=== PATIENT | female | born 1960 | race Caucasian/White ===

== ENCOUNTER 2018-07-23 07:46 | Emergency (ER) | payer BC ==
[~2018-07-23] VITALS: Ht 160 cm; Wt 107.0 kg
[~2018-07-23 07:46] MED LIST: ALBU90OI61 INH; AMLO5 PO; ASPI325 PO; ATOR80 PO; Bisoprolol-Hct1 EAC2 PO; CLON1 PO; CLOP75 PO; CRUTCH3 USE; CYCL10 PO; ESCI10 PO; GABA100 PO; GLIP5 PO; HYDACE5325 PO; KETOROLAC60 MG/2 ML IM; LEVSOD100 PO; LORA1 PO; MECL12.5 PO; METF500C PO; NAPR500 PO; NAPR550 PO; OXYACE5T PO; Percocet 5-3251 EACH PO; RXCYCL10 PO; RXNAPNA550 PO; TRAM50 PO
[2018-07-23] MEDS ORDERED: Oxycodone-Apap1 EAC3 PO (08:15)
[2018-07-23] MEDS ORDERED: AMIT25 PO (08:16)
[2018-07-23] MEDS ORDERED: Percocet 5-3251 EACH PO (10:10)
== END 2018-07-23 10:28 | disposition home or self-care (01) ==
LOC: ER 07:46
DX: M75.32 Calcific tendinitis of left shoulder (principal); M75.52 Bursitis of left shoulder; Z88.0 Allergy status to penicillin; Z88.5 Allergy status to narcotic agent; Z79.899 Other long term (current) drug therapy; Z79.84 Long term (current) use of oral hypoglycemic drugs; Z79.02 Long term (current) use of antithrombotics/antiplatelets; Z79.82 Long term (current) use of aspirin; I10 Essential (primary) hypertension; E11.9 Type 2 diabetes mellitus without complications; I25.2 Old myocardial infarction; F17.210 Nicotine dependence, cigarettes, uncomplicated
CPT/HCPCS: 20610; 73030; 93005; 93010; 99283-25; J3301

== ENCOUNTER 2023-08-08 15:02 | Emergency (ER) | payer SELFPAY ==
[~2023-08-08] VITALS: Ht 160 cm; Wt 122.5 kg
[~2023-08-08 15:02] MED LIST changes: +AMIT25 PO; +Oxycodone-Apap1 EAC3 PO
[2023-08-08 15:32] VITALS: BP 171/91
[2023-08-08] MEDS ORDERED: Tetanus and Diphtheria Toxoid 0.5 ML INJ IM ONE (15:35)
== END 2023-08-08 16:22 | disposition home or self-care (01) ==
LOC: ER 15:02
DX: S50.811A Abrasion of right forearm, initial encounter (principal); S50.11XA Contusion of right forearm, initial encounter; S80.811A Abrasion, right lower leg, initial encounter; S80.11XA Contusion of right lower leg, initial encounter; G89.29 Other chronic pain; I10 Essential (primary) hypertension; E11.9 Type 2 diabetes mellitus without complications; F17.210 Nicotine dependence, cigarettes, uncomplicated; W18.09XA Striking against other object with subsequent fall, initial encounter; Z88.0 Allergy status to penicillin; Z88.5 Allergy status to narcotic agent; Z79.84 Long term (current) use of oral hypoglycemic drugs; Z79.890 Hormone replacement therapy; Z79.02 Long term (current) use of antithrombotics/antiplatelets; Z79.899 Other long term (current) drug therapy
CPT/HCPCS: 73090; 90471; 90714; 99283-25

== ENCOUNTER 2024-06-23 04:12 | Emergency (ER) | payer SELFPAY ==
[~2024-06-23] VITALS: Ht 160 cm; Wt 144.3 kg
[2024-06-23 10:54] LABS: BASOPHILS ABSOLUTE AUTO 0.01 K/mm3 (0.00-0.23); BASOPHILS PERCENT AUTO 0 % (0-2); EOSINOPHILS ABSOLUTE AUTO 0.08 K/mm3 (0.00-0.68); EOSINOPHILS PERCENT AUTO 1 % (0-6); Hematocrit 36.4 % (33.0-51.0); Hemoglobin 11.6 g/dL (11.5-16.0); IMMATURE GRAN ABSOLUTE AUTO 0.01 K/mm3 (0.00-0.10); IMMATURE GRAN PERCENT AUTO 0 % (0-1); LYMPHOCYTES ABSOLUTE AUTO 1.07 K/mm3 (0.84-5.20); LYMPHOCYTES PERCENT AUTO 17 % (21-46); MONOCYTES ABSOLUTE AUTO 0.34 K/mm3 (0.16-1.47); MONOCYTES PERCENT AUTO 5 % (4-13); Mean Corpuscular HGB 35.5 pg (26.0-34.0); Mean Corpuscular HGB Conc 31.9 g/dL (31.5-36.5); Mean Corpuscular Volume 111 fL (80-100); Mean Platelet Volume 8.5 fL (9.1-12.4); NEUTROPHILS ABSOLUTE AUTO 4.81 K/mm3 (1.96-9.15); NEUTROPHILS PERCENT AUTO 76 % (41-73); Platelet Count 258 K/mm3 (150-400); RDW Standard Deviation 95.9 fL (35.1-46.3); Red Blood Cell Count 3.27 M/mm3 (3.80-5.20); White Blood Cell Count 6.32 K/mm3 (4.00-11.30)
[2024-06-23 11:08] LABS: Albumin, Blood 2.9 g/dL (3.4-5.0); Albumin/Globulin Ratio 0.6 (0.8-1.8); Bilirubin, Total 0.9 mg/dL (0.1-1.0); Bun/Creatinine Ratio 28.7 (12.0-20.0); Calcium, Blood 8.7 mg/dL (8.5-10.1); Creatinine, Blood 0.49 mg/dL (0.40-1.00); Globulin, Blood 4.5 g/dL (2.2-4.0); Potassium, Blood 3.7 mmol/L (3.5-5.5); Total Protein, Blood 7.4 g/dL (6.4-8.2)
[2024-06-23] MEDS ORDERED: Morphine Sulfate 4 MG/1 ML Injection IV ONE (11:15)
[2024-06-23] MEDS ORDERED: Aspir 8181 MG PO (11:38)
[2024-06-23] MEDS ORDERED: LOSA25 PO (11:39)
[2024-06-23] MEDS ORDERED: PIOG30 PO (11:40)
[2024-06-23] MEDS ORDERED: FURO20 PO (12:25)
[2024-06-23 12:30] VITALS: BP 116/72
== END 2024-06-23 12:45 | disposition home or self-care (01) ==
LOC: ER 04:12
PROVIDERS: Student in an Organized Health Care Education/Training Program
DX: R60.1 Generalized edema (principal); K76.89 Other specified diseases of liver; I10 Essential (primary) hypertension; E11.9 Type 2 diabetes mellitus without complications; F17.210 Nicotine dependence, cigarettes, uncomplicated; Z79.899 Other long term (current) drug therapy; Z79.84 Long term (current) use of oral hypoglycemic drugs; Z79.02 Long term (current) use of antithrombotics/antiplatelets; Z88.0 Allergy status to penicillin; Z88.5 Allergy status to narcotic agent
CPT/HCPCS: 74177; 80053; 83690; 85025; 99284-25; J2270; Q9967

== ENCOUNTER 2024-06-28 13:27 | Inpatient (IN) | payer MEDICAID ==
[~2024-06-28] VITALS: Ht 160 cm; Wt 142.0 kg
[~2024-06-28 13:27] MED LIST changes: +Aspir 8181 MG PO; +FURO20 PO; +LOSA25 PO; +PIOG30 PO
[2024-06-28 14:59] LABS: BASOPHILS ABSOLUTE AUTO 0.01 K/mm3 (0.00-0.23); BASOPHILS PERCENT AUTO 0 % (0-2); EOSINOPHILS ABSOLUTE AUTO 0.04 K/mm3 (0.00-0.68); EOSINOPHILS PERCENT AUTO 1 % (0-6); Hematocrit 36.6 % (33.0-51.0); Hemoglobin 11.5 g/dL (11.5-16.0); IMMATURE GRAN ABSOLUTE AUTO 0.02 K/mm3 (0.00-0.10); IMMATURE GRAN PERCENT AUTO 0 % (0-1); LYMPHOCYTES PERCENT AUTO 17 % (21-46); MONOCYTES ABSOLUTE AUTO 0.29 K/mm3 (0.16-1.47); MONOCYTES PERCENT AUTO 5 % (4-13); Mean Corpuscular HGB 35.7 pg (26.0-34.0); Mean Corpuscular HGB Conc 31.4 g/dL (31.5-36.5); Mean Corpuscular Volume 114 fL (80-100); Mean Platelet Volume 8.8 fL (9.1-12.4); NEUTROPHILS PERCENT AUTO 77 % (41-73); NRBC ABSOLUTE 0.02 K/mm3 (0.00-0.02); NRBC Auto 0.3 /100 WBC (0.0-0.2); Platelet Count 250 K/mm3 (150-400); RDW Coefficient Variation 22.9 % (11.7-14.2); RDW Standard Deviation 96.2 fL (35.1-46.3); Red Blood Cell Count 3.22 M/mm3 (3.80-5.20); White Blood Cell Count 5.96 K/mm3 (4.00-11.30)
[2024-06-28 15:18] LABS: Albumin, Blood 2.9 g/dL (3.4-5.0); Albumin/Globulin Ratio 0.6 (0.8-1.8); Bilirubin, Total 0.8 mg/dL (0.1-1.0); Bun/Creatinine Ratio 22.6 (12.0-20.0); Calcium, Blood 9.2 mg/dL (8.5-10.1); Creatinine, Blood 0.57 mg/dL (0.40-1.00); Globulin, Blood 4.7 g/dL (2.2-4.0); Potassium, Blood 3.9 mmol/L (3.5-5.5); Total Protein, Blood 7.6 g/dL (6.4-8.2)
[2024-06-28] MEDS ORDERED: Furosemide 10 MG/ML 4ML Vial IV ONE (17:50)
[2024-06-28] MEDS ORDERED: FLU VACC TS2024-25(6MOS UP)/PF 45 MCG/0.5 ML SYRINGE IM ONE (18:45)
[2024-06-28] MEDS ORDERED: Albuterol 2.5 MG/3 ML VIAL INH PRN (18:50)
[2024-06-28 21:24] VITALS: BP 135/63
--- NOTE | 2024-06-28 22:16 | NUR ---
ADMIT NOTE 63 YR OLD FEMALE ADMITTED TO FLOOR FROM THE ED WITH DX OF NEW ONSET OF CHF. ALERT AND ORIENTED. NO C/O CHEST PAIN. VSS. PT OBESE (149 KG). PLACED ON MED TELE SR. ON O2 AT 2L/NC. UP WITH ASSIST TO VOID - RECEIVED LASIX IN THE ED. NOTE 2 SMALL ABRASIONS OF BLE - BACK OF THIGHS, VOICED "CUT" HERSELF ON "THE TOILET" IN THE ED EARLIER IN THE DAY. SEE PICS. OTHERWISE, SLIGHT REDNESS UNDER BREASTS AND NO NOTED OTHER ANOMALY. ORIENTED TO USE OF CALL LIGHT. AGREES TO USE CALL LIGHT IF NEED TO GET OOB. CALL LIGHT IN REACH
--- NOTE | 2024-06-29 01:25 | NUR ---
MD NOTIFIED OF SMALL CUTS/ABRASIONS OF BACK OF BILAT THIGHS. NO SPECIFIC ORDERS, HUST TO KEEP CLEAN AND DRESSING IF NEEDED
--- NOTE | 2024-06-29 03:26 | NUR ---
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 VSS. NO C/O CHEST PAIN. MED TELE IN USE. ALERT AND ORIENTED X 4. EDEMA IN BLE. OBESE. WT 149 KG. UP WITH ASSIST TO AND FROM BATHROOM, ABLE TO REPOSITION SELF IN BED WITHOUT ASSIST. ORIENTED TO USE OF CALL LIGHT. HAS BEEN RESTING INTERMITTENTLY, VOICED NEEDING TO VOID AT INTERVALS. TO HAVE ECHO LATER TODAY. CALL LIGHT IN REACH, RAILS UP X 2 AND BED IN LOW POSITION FOR SAFETY. WILL CONT TO MONITOR
[2024-06-29 04:17] VITALS: BP 121/50
[2024-06-29 07:05] LABS: Bun/Creatinine Ratio 20.3 (12.0-20.0); Calcium, Blood 8.6 mg/dL (8.5-10.1); Creatinine, Blood 0.54 mg/dL (0.40-1.00); Magnesium, Blood 1.5 mg/dL (1.6-2.4); Potassium, Blood 3.1 mmol/L (3.5-5.5)
[2024-06-29 07:12] VITALS: BP 111/60
[2024-06-29] MEDS ORDERED: Insulin Human Lispro 100 Units/ML 3ML Syringe SC SCH (07:30)
[2024-06-29] MEDS ORDERED: Acetaminophen 500 MG Tab PO PRN (08:00)
[2024-06-29] MEDS ORDERED: Potassium Chloride 20 MEQ TabCR PO ONE (08:00)
[2024-06-29] MEDS ORDERED: Polyethylene Glycol 3350 17 gm PO PRN (08:00)
[2024-06-29] MEDS ORDERED: Mag Sulfate 1 GM/D5% 100ML 100 ML IV STA (08:23)
--- NOTE | 2024-06-29 08:43 | NUR ---
CALL PLACED TO DR DC, HOME PERCOCET ORDERED FOR PT PAIN
[2024-06-29] MEDS ORDERED: OxyCODONE 5 mg/Acetamin 325 mg TABLET PO PRN (08:45)
[2024-06-29] MEDS ORDERED: Enoxaparin 40 MG/0.4 ML SYR SC SCH (09:00)
[2024-06-29] MEDS ORDERED: Furosemide 10 MG/ML 4ML Vial IV SCH (09:00)
[2024-06-29] MEDS ORDERED: Losartan Potassium 25 MG Tab PO SCH (09:00)
[2024-06-29] MEDS ORDERED: Aspirin 81 MG Chew PO SCH (09:00)
[2024-06-29] MEDS ORDERED: GlipiZIDE 5 MG Tab PO SCH (09:00)
[2024-06-29] MEDS ORDERED: NS 250 ML IV PRN (09:50)
[2024-06-29] MEDS ORDERED: Levothyroxine Sodium 0.1 MG Tab PO SCH (10:02)
[2024-06-29] MEDS ORDERED: Spironolactone 12.5 MG TAB PO SCH (14:00)
[2024-06-29] MEDS ORDERED: Spironolactone 25 MG Tab PO SCH (14:00)
[2024-06-29 15:02] VITALS: BP 116/57
--- NOTE | 2024-06-29 18:00 | NUR ---
SHIFT SUMMARY PT A&OX4 AND ANSWERS QUESTIONS APPROPRIATELY. SCHEDULED AND PRN MEDICATIONS ADMINISTERED. PT HAD ECHOCARDIOGRAM THIS AM, NO ADVERSE EFFECTS. PT VSS, NO COMPLAINTS OF CP/PRESSURE OR SOB. PT SPENT MOST OF SHIFT IN BED AND ALERT. AMBULATES SBA/INDEPENDENTLY TO THE BR. NO ACUTE EVENTS AT THIS TIME. PT REPOSITIONED INDEPENDENTLY. PT LEFT IN A POSITION OF SAFETY WITH FALL PRECAUTIONS IN PLACE AND CALL LIGHT IN REACH.
[2024-06-29 19:49] VITALS: BP 119/57
[2024-06-29] MEDS ORDERED: Amitriptyline HCl 25 MG Tab PO SCH (21:00)
[2024-06-29] MEDS ORDERED: Docusate Sodium/Senna 1 Tab PO SCH (21:00)
[2024-06-30 02:34] VITALS: BP 120/91
--- NOTE | 2024-06-30 03:20 | NUR ---
VULNERABILITY ASSESSMENT ANALYST SUMMARY: PT A&O X4. MAKES NEEDS KNONW. MEDICATED X1 WITH PRN PERCOCET PER EMAR ORDER; EFFECTIVE. PT AMBULATES AND PERFORMES BED MOBILITY INDEPENDENTLY IN ROOM. DENIES CP /PRESSSURE OR SOB. PT WITH GENERALIZED SACRAL EDEMA AND RLE 1+, LLE 2+ EDEMA. PT ENCOURAGED TO ELEVATE BLE'S. VSS. NO ACUTE EVENTS / CHANGES THIS SHIFT. BED IN LOWEST POSITION. CALL LIGHT IN REACH.
[2024-06-30 05:45] LABS: Hematocrit 34.2 % (33.0-51.0); Hemoglobin 10.9 g/dL (11.5-16.0); Mean Corpuscular HGB 35.4 pg (26.0-34.0); Mean Corpuscular HGB Conc 31.9 g/dL (31.5-36.5); Mean Corpuscular Volume 111 fL (80-100); Mean Platelet Volume 8.6 fL (9.1-12.4); Platelet Count 208 K/mm3 (150-400); RDW Coefficient Variation 22.5 % (11.7-14.2); RDW Standard Deviation 92.7 fL (35.1-46.3); Red Blood Cell Count 3.08 M/mm3 (3.80-5.20); White Blood Cell Count 4.85 K/mm3 (4.00-11.30)
[2024-06-30 06:07] LABS: Albumin, Blood 2.8 g/dL (3.4-5.0); Anion Gap 6 mmol/L (3-11); Blood Urea Nitrogen 12 mg/dL (8-24); Bun/Creatinine Ratio 21.9 (12.0-20.0); CO2, Blood 40 mmol/L (21-32); Calcium, Blood 9.1 mg/dL (8.5-10.1); Chloride, Blood 94 mmol/L (98-108); Creatinine, Blood 0.55 mg/dL (0.40-1.00); Glomerular Filtration Rate 103 (60-); Glucose, Blood 142 mg/dL (70-99); Magnesium, Blood 1.7 mg/dL (1.6-2.4); Potassium, Blood 3.2 mmol/L (3.5-5.5); Sodium, Blood 137 mmol/L (136-145); Thyroxine (T4) 9.6 ug/dL (4.8-13.9)
[2024-06-30] MEDS ORDERED: Potassium Chloride 20 MEQ TabCR PO ONE (07:10)
[2024-06-30 07:33] VITALS: BP 128/62
[2024-06-30 15:45] VITALS: BP 113/54
--- NOTE | 2024-06-30 16:41 | NUR ---
SHIFT SUMMARY: PATIENT A/OX4, CALM, PLEASANT AND COOPERATIVE c CARE. PATIENT DENIES CP/PRESSURE, SOB, N/V AND DIZZINESS. PATIENT ON TELE, SR HR IN THE HIGH 80'S BPM. PATIENT HAS EDEMA FROM ABDOMEN DOWN TO FEET, DIURESED c IV LASIX AND PO ALDACTONE, MEDICATED X1 FOR CHRONIC BACK PAIN PER EMAR c GOOD EFFECT. PATIENT HAD 3,100 MLS URINE OUTPUT AND 1 LARGE BM THIS SHIFT. PATIENT AMBULATING IN ROOM INDEPENDENTLY, O2 AT BASELINE 2L VIA NC, SATTING 97%. PATIENT HAS GREAT APPETITE. PATIENT HAS HAD NO COMPLAINTS OR DENIES NEW CONCERNED THIS SHIFT. VITAL SIGNS REVIEWED. CALL LIGHT IN REACH.
[2024-06-30 19:15] VITALS: BP 141/68
--- NOTE | 2024-06-30 19:20 | NUR ---
PRODUCTION ILLUSTRATOR TOOK VITALS, [place] DID NOT CAPTURE "1' for the "16". RESPIRATION COUNT OF 6 NOT ACCURATE FOR PT VITALS OR CONDITION.
[2024-07-01 03:57] VITALS: BP 128/60
--- NOTE | 2024-07-01 06:46 | NUR ---
SHIFT SUMMARY PT A&OX4 AND ANSWERS QUESTIONS APPROPRIATELY. PT RECEIVED SCHEDULED AND PRN MEDICATIONS WITH NO ADVERSE EFFECTS. VSS, NO COMPLAINTS OF CP/PRESSURE OR SOB. PT SPENT MOST OF SHIFT IN BED RESTING. PT REPOSITIONED INDEPENDENTLY. FALL PRECAUTIONS IN PLACE, CALL LIGHT IN REACH.
[2024-07-01 07:22] VITALS: BP 182/88
[2024-07-01 09:28] VITALS: BP 155/65
[2024-07-01 09:28] LABS: Bun/Creatinine Ratio 21.4 (12.0-20.0); Creatinine, Blood 0.47 mg/dL (0.40-1.00); Potassium, Blood 3.5 mmol/L (3.5-5.5)
[2024-07-01] MEDS ORDERED: FURO40 PO (11:41)
[2024-07-01] MEDS ORDERED: SENN187 PO (11:43)
[2024-07-01] MEDS ORDERED: ACET500 PO (11:43)
[2024-07-01] MEDS ORDERED: MIRALAX17 GM PO (11:43)
[2024-07-01] MEDS ORDERED: Bisoprolol Fumar5 MG PO (11:44)
[2024-07-01] MEDS ORDERED: SPIR25 PO (11:44)
[2024-07-01] MEDS ORDERED: POTA10T PO (11:45)
--- NOTE | 2024-07-01 12:33 | NUR ---
PT DISCHARGED HOME TODAY. CAROLYN GAVIN RN DISCUSSED DISCHARGE PLAN WITH PT AND TOOK OUT IV.
== END 2024-07-01 12:15 | disposition home or self-care (01) | DRG 291 ==
LOC: ER 13:27 → ERHOLD 13:28 → MEDS 13:28 → ENPENDDIS 07-01 11:14 → MEDS 07-01 12:15
PROVIDERS: Internal Medicine; Nurse Practitioner Acute Care; Physician Assistant; ADMIT Internal Medicine
DX: I11.0 Hypertensive heart disease with heart failure (principal); I50.31 Acute diastolic (congestive) heart failure; J96.91 Respiratory failure, unspecified with hypoxia; Z68.43 Body mass index [BMI] 50.0-59.9, adult; I25.10 Atherosclerotic heart disease of native coronary artery without angina pectoris; F41.9 Anxiety disorder, unspecified; E78.5 Hyperlipidemia, unspecified; E11.9 Type 2 diabetes mellitus without complications; I27.20 Pulmonary hypertension, unspecified; E87.6 Hypokalemia; E83.42 Hypomagnesemia; E03.9 Hypothyroidism, unspecified; Z88.0 Allergy status to penicillin; G89.29 Other chronic pain; M54.9 Dorsalgia, unspecified; E66.01 Morbid (severe) obesity due to excess calories; F17.210 Nicotine dependence, cigarettes, uncomplicated; Z95.5 Presence of coronary angioplasty implant and graft; Z79.82 Long term (current) use of aspirin; Z79.899 Other long term (current) drug therapy; Z79.890 Hormone replacement therapy; Z79.84 Long term (current) use of oral hypoglycemic drugs; Z79.891 Long term (current) use of opiate analgesic; Z88.5 Allergy status to narcotic agent; Z99.81 Dependence on supplemental oxygen; I25.2 Old myocardial infarction; Z90.710 Acquired absence of both cervix and uterus; Z90.722 Acquired absence of ovaries, bilateral; Z90.79 Acquired absence of other genital organ(s); Z98.890 Other specified postprocedural states
CPT/HCPCS: 36415; 71046; 80048; 80053; 80069; 82947; 83735; 83880; 84436; 84443; 85025; 85027; 93005; 93010; 93306; 94640; 94664; 94760; 94762; 96365; 96366; 96372; 96374; 96375; 96376; 99285-25; A9270; G0378; J1650; J1940; J3475